=== PATIENT | male | born 1975 | race Caucasian/White ===

== ENCOUNTER 2018-08-26 19:45 | Emergency (ER) | payer OTHER ==
[~2018-08-26] VITALS: Ht 180.3 cm; Wt 115.6 kg
[2018-08-26 19:48] VITALS: BP 158/92
--- NOTE | 2018-08-26 19:54 | NUR ---
PT STATES HEAD INJURY OCCURED APPROXIMATELY 1600/1630. PT'S DIRECTOR OF PRIMARY CARE AWARE OF INCIDENT. C/O PAIN TO POSTERIOR HEAD LT SIDE; SWELLING TO SITE; SKIN INTACT. ALEVE AND IBUPROFEN 600MG AFTER INCIDENT. RESP EVEN & UNLABORED, SPEECH CLEAR, SKIN W/D.
--- NOTE | 2018-08-26 20:04 | NUR ---
TO RADIOLOGY PER MAGUI
[2018-08-26] MEDS ORDERED: AMLODIPINE (20:06)
[2018-08-26] MEDS ORDERED: LEVOTHYROXINE (20:06)
[2018-08-26] MEDS ORDERED: ATORVASTATIN (20:06)
== END 2018-08-26 21:06 | disposition home or self-care (01) ==
LOC: ED 21:00
DX: E78.5 Hyperlipidemia, unspecified (principal); E07.9 Disorder of thyroid, unspecified; I10 Essential (primary) hypertension; S00.03XA Contusion of scalp, initial encounter; X58.XXXA Exposure to other specified factors, initial encounter; Y93.89 Activity, other specified; Y92.89 Other specified places as the place of occurrence of the external cause; Y99.8 Other external cause status
CPT/HCPCS: 70450; 72050; 99284